=== PATIENT | female | born 1990 | race Two or more races ===

== ENCOUNTER 2025-02-16 08:17 | Emergency (ER) | payer OTHER ==
[~2025-02-16] VITALS: Ht 167.6 cm; Wt 86.0 kg
[2025-02-16 08:42] VITALS: BP 150/72; PULSE 69; RESP 19; TEMP 99.9; O2SAT 100
[2025-02-16] MEDS: methylPREDNISolone SOD SUCC 125 MG/2 ML VL IM ONE (08:55)
--- NOTE | 2025-02-16 08:55 | ED.PDOC ---
HPI Allergic reaction HPI Comments A 34 YEAR OLD FEMALE PRESENTS TO THE ED WITH COMPLAINT OF ALLERGIC REACTION . PATIENT STATES SHE WAS AT HOME EARLIER THIS A.M. USING HOME TREADMILL. PATIENT STATES AFTERWARDS SHE DRANK SOME COLD WATER FROM HER FRIDGE AND SHE STARTED TO HAVE BILATERAL EYE REDNESS ,SWELLING AND EYE TEARING. PATIENT STATES SHE TOOK BENADRYL BUT STATES IT DID NOT HELP AND CAME TO THE ED FOR EVALUATION. PATIENT DENIES FEVER, CHILLS, SHORTNESS OF BREATH, CHEST PAIN, ABDOMINAL PAIN, NAUSEA, VOMITING, HEADACHE, OR OTHER COMPLAINTS. NO OTHER SYMPTOMS OR MODIFYING FACTORS AT THIS TIME. PATIENT IS ALERT, ORIENTED X 4, AND HAS STEADY GAIT. Chief Complaint: ALLERGIC REACTION Time Seen by MD: 08:51 Reviewed Notes: Nurses Notes, Medications, Allergies Allergies: Coded Allergies: NO KNOWN ALLERGIES (Unverified , 02/16/25) Information Source: Patient Mode of Arrival: Ambulatory Brought in by: SELF Severity: Moderate Rash: Mild SOB: None Difficulty swallowing: Mild Pruritus: Mild Timing: Hours Duration: Since onset, Hours Prehospital treatment: None Location: Eyes, Face, Throat Exposed to: Other Developed: Difficult Swallowing, Pruritus, Rash History of: Urticaria Modyifying Factors: Diphenhydramine Associated Sign and Symptoms: None Past Medical History PAST MEDICAL HISTORY: Denies Surgical History: Denies all surgeries SURGERY NURSE History: Denies all SURGERY NURSE Hx Family History Family History: Reviewed,noncontributory to illness Social History Smoker: Non-Smoker Alcohol: Denies ETOH Use Drugs: Denies Drug Use Lives In: Home Constitutional: denies: chills, diaphoresis, fatigue, fever, malaise, sweats, weakness, others EENTM: reports: eye redness, tearing, throat swelling; denies: blurred vision, double vision, ear bleeding, ear discharge, ear drainage, ear pain, ear ringing, eye pain, hearing loss, mouth pain, mouth swelling, nasal discharge, nose bleeding, nose congestion, nose pain, photophobia, throat pain, voice changes, others Respiratory: denies: cough, hemoptysis, orthopnea, SOB at rest, shortness of breath, SOB with excertion, stridor, wheezing, others Cardiovascular: denies: chest pain, dizzy spells, diaphoresis, Dyspnea on exertion, edema, irregular heart beat, left arm pain, lightheadedness, palpitations, PND, syncope, others Gastrointestinal: denies: abdomen distended, abdominal pain, blood streaked bowels, constipated, diarrhea, dysphagia, difficulty swallowing, hematemesis, melena, nausea, poor appetite, poor fluid intake, rectal bleeding, rectal pain, vomiting, others Genitourinary: denies: abnormal vagina bleeding, burning, dyspareunia, dysuria, flank pain, frequency, hematuria, incontinence, pain, , vagina discharge, urgency, others Neurological: denies: dizziness, fainting, headache, left sided numbness, left sided weakness, numbness, paresthesia, pre-existing deficit, right sided numbness, right sided weakness, seizure, speech problems, tingling, tremors, weakness, others Musculoskeletal: denies: back pain, gout, joint pain, joint swelling, muscle pain, muscle stiffness, neck pain, others Integumetry: reports: rash; denies: bruises, change in color, change in hair/nails, dryness, laceration, lesions, lumps, wounds, others Allergic/Immunocompromised: denies: Difficulty Healing, Frequent Infections, Hives, Itching, others Hematologic/Lymphatic: denies: anemia, blood clots, easy bleeding, easy bruising, swollen glands, others Endocrine: denies: excessive hunger, excessive sweating, excessive thirst, excessive urination, flushing, intolerance to cold, intolerance to heat, unexplained weight gain, unexplained weight loss, others Psychiatric: denies: anxiety, bipolar disorder, depression, hopeless, panic disorder, schizophrenia, sleepless, suicidal, others All Other Systems: Reviewed and Negative Physical Exam General Appearance: No Apparent Distress, Obese HEENT: Eye Lid (L) (SWELLING AND REDNESS OF LEFT UPPER AND LOW EYELID), Eye Lid (R) (MILD SWELLING AND REDNESS OMN RIGHT LOWER EYELID. ), Pale Conjuntivae (L) (WITH MILD HEMORRHAGE WITH WATER EYE. ), Pale Conjuntivae (R) (WITH MILD HEMORRH AGE AND WATERY EYE.), PERRL/EOMI, Pharyngeal Erythema (ERYTHEMA AND MILD SWELLING ON TONSILIS, NO EXUDATES. ), TMs Normal Neck: Full Range of Motion, Non-Tender, Normal, Normal Inspection Respiratory: Chest Non-Tender, Lungs Clear, No Accessory Muscle Use, No Respiratory Distress, Normal Breath Sounds Cardiovascular: No Edema, No JVD, No Murmur, No Gallop, Normal Peripheral Pulses, Regular Rate/Rhythm Breast Exam: Deferred Gastrointestinal: No Organomegaly, Non Tender, No Pulsatile Mass, Normal Bowel Sounds, Soft Genitalia: Deferred Pelvic: Deferred Rectal: Deferred Extremities: No calf tenderness, Normal capillary refill, Normal inspection, Normal range of motion, Non-tender, No pedal edema Musculoskeletal : Apperance: Normal Neurologic: Alert, furnace packer II-XII nml as Tested, No Motor Deficits, Normal Affect, Normal Mood, No Sensory Deficits Cerebellar Function: Normal Reflexes: Normal Skin: Dry, Normal Color, Rash (MILD ERYTHEMA SKIN RASH ON UPPER CHEEKS. ), Warm Peripheral Pulses: 2+ carotid (R), 2+ carotid (L) Lymphatic: No Adenopathy Was a procedure done? Was a procedure done?: No Differential diagnosis (all) Differential Diagnosis: Anaphylaxis, Contact Dermatitis, Drug Reaction, Urticaria, Other (ALLERGY CONJUNCTIVITIS OF BOTH EYES) X-Ray, Labs, Meds, VS Vital Signs Date Time Temp Pulse Resp B/P (MAP) Pulse Ox O2 Delivery O2 Flow Rate FiO2 02/16/25 08:42 99.9 69 19 150/72 (98) 100 99.9 02/16/25 08:42 69 19 100 Room Air 02/16/25 08:19 98.4 65 15 155/94 98 98.4 Current Medications Medications (Trade) Dose Ordered Sig/Trae Route Start Time Stop Time Status Last Admin Epinephrine HCl 0.3 mg ONCE ONCE IM 02/16/25 09:00 02/16/25 09:01 DC 02/16/25 08:55 Methylprednisolone Sodium Succinate (Solu Medrol) 125 mg ONCE ONCE IM 02/16/25 09:00 02/16/25 09:01 DC 02/16/25 08:55 X-Ray, Labs, Meds, VS Comment COURSE: EXTERNAL MEDICAL RECORDS REVIEWED: [NONE] INDEPENDENT HISTORIANS: [NONE] SOCIAL DETERMINANTS OF HEALTH: [NONE] LABS ORDERED: NONE REVIEWED AND INTERPRETED RESULTS: NONE IMAGING ORDERED: NONE TREATMENTS ORDERED: SOLU-MEDROL 125 IM, EPINEPHRINE 0.3 IM PROCEDURES PERFORMED: NONE CRITICAL CARE TIME: NONE I HAVE DISCUSSED THE PATIENT WITH THE ATTENDING PHYSICIAN DR. HARP, AND HE AGREES WITH THE PATIENT'S PLAN OF CARE AND DISPOSITION. BASED ON HISTORY OF PRESENT ILLNESS, AND PHYSICAL EXAM, PATIENT WILL BE DISCHA RGED HOME. DISCUSSED PLAN FOR DISCHARGE HOME WITH RX [MEDROL DOSE PACK, TRIAMCINOLONE AND PATADAY OPTH SOLO]. MEDICATION WARNINGS GIVEN. SHARED DECISION MAKING: DISCUSSED WITH PATIENT THAT THEIR WORKUP WAS NORMAL. PATIENT INSTRUCTED TO FOLLOW UP WITH PRIMARY CARE PROVIDER IN 1-2 DAYS FOR RE- EVALUATION OF SYMPTOMS. PATIENT VERBALIZES UNDERSTANDING TO RETURN TO ED FOR NEW OR WORSEN Time of 1ST Reevaluation: 09:30 Reevaluation 1ST: Improved Patient Education/Counseling: Diagnosis, Treatment, Need For Follow Up Family Education/Counseling: Diagnosis, Treatment, No Family Present Medical Screening: No EMC Exist At This Time SEPSIS Sepsis Screen Date sepsis recognized/suspect: Feb 16, 2025 Time Sepsis recognized/suspect: 820 Recent Procedure: No On Antibiotic Therapy: No Respiratory Rate >20: No Heart Rate >90: No Temp<36 C (96.8 F) or >38.3 C: No SBP <90 or MAP <65 mmHG: No New Acute Mental Status Change: No Is the patient on CPAP, BIPAP,: No Vital Signs Date Time Temp Pulse Resp B/P (MAP) Pulse Ox O2 Delivery O2 Flow Rate FiO2 02/16/25 08:42 99.9 69 19 150/72 (98) 100 99.9 02/16/25 08:42 69 19 100 Room Air 02/16/25 08:19 98.4 65 15 155/94 98 98.4 Medications Medications Dose Ordered Sig/Trae Route Start Time Stop Time Status Last Admin Dose Admin Epinephrine HCl 0.3 mg ONCE ONCE IM 02/16/25 09:00 02/16/25 09:01 DC 02/16/25 08:55 Methylprednisolone Sodium Succinate 125 mg ONCE ONCE IM 02/16/25 09:00 02/16/25 09:01 DC 02/16/25 08:55 Departure 1 Departure Time of Disposition: 09:30 Impression: Primary Impression: Allergic reaction Qualified Codes: T78.40XA - Allergy, unspecified, initial encounter Additional Impression: Allergic conjunctivitis, bilateral Disposition: 01 HOME / SELF CARE / HOMELESS Condition: Stable Additional Instructions: F/U PCP IN 2 DAYS RECHECK. IF CONDITION BECOME WORSE, RETURN TO ED [facility]. e-Prescriptions Olopatadine HCl (Pataday) 0.1 % Manuela 0.1 % OP BID, #5 ML Prov: FLYNN MARTIN 02/16/25 Triamcinolone Acetonide (Triamcinolone Acetonide) 0.025 % Cre 1 APPLIC TOP BID, #30 GRAMS Prov: FLYNN MARTIN 02/16/25 Methylprednisolone (Medrol Dosepak) 4 Mg Yair 4 MG PO UD, #21 TAB UAD Prov: FLYNN MARTIN 02/16/25 Discharged With: Self Critical Care Note Critical Care Time?: No Stability Stability form required: No Heart Score Heart Score: Heart Score Response (Comments) Value History N/A 0 EKG N/A 0 Age N/A 0 Risk Factors N/A 0 Troponin N/A 0 Total 0 I personally scribed for FLYNN MARTIN ([email or web address]) on 02/16/25 at 08:55. Electronically submitted by Johny Cavazos ([email or web address]). I personally scribed for FLYNN MARTIN ([email or web address]) on 02/16/25 at 09:20. Electronically submitted by Johny Cavazos ([email or web address]). FLYNN MARTIN Feb 16, 2025 08:55
[2025-02-16] MEDS ORDERED: OLOP0.1S7 OP (09:28)
[2025-02-16] MEDS ORDERED: TRIA0.02 TOP (09:28)
[2025-02-16] MEDS ORDERED: METH4PAK PO (09:28)
== END 2025-02-16 09:31 | disposition home or self-care (01) ==
LOC: ER 08:17
DX: H10.13 Acute atopic conjunctivitis, bilateral (principal)
CPT/HCPCS: 96372; 99284; J0169; J2919